=== PATIENT | male | born 1945 | race Caucasian/White ===

== ENCOUNTER → 2018-03-10 | Outpatient (CLI) | payer MEDICARE ==
[~2018-03-10] MED LIST: ACET250 PO; ALBU90OI; ALBU90OI INH; ALBU90OI6 INH; ALBUIS IH; ALLO100 PO; ATEN25; BUDE6HFA; CARV6.25 PO; CHLO500 PO; CLAR500; COLC.6 PO; CYCL10 PO; Crutch1 EACH MISC; FAMO20 PO; FURO40 PO; HYDACE5 PO; IBUP800 PO; LEVFLO500 PO; LISI5 PO; METF500 PO; NAPR500 PO; OMEP10ER; OXYACE5T PO; POTCHL20ER PO; RXCYCL10 PO; RXOXYACE PO; SIMV10 PO; SPIHYD; SPIR25 PO; TORSE20 PO; WARF5; WARF5 PO
== END | disposition home or self-care (01) ==
LOC: LAB 13:04 → LAB SHORT 13:04
DX: L08.9 Local infection of the skin and subcutaneous tissue, unspecified (principal)
CPT/HCPCS: 87070; 87147; 87205

== ENCOUNTER 2018-11-12 12:07 | Observation (INO) | payer MEDICARE, OTHER ==
[~2018-11-12] VITALS: Ht 188 cm; Wt 168.2 kg
[~2018-11-12 12:07] MED LIST changes: -ALBU90OI6 INH; -POTCHL20ER PO
[2018-11-12 12:54] LABS: BASOPHILS ABSOLUTE AUTO 0.08 K/mm3 (0.00-0.23); BASOPHILS PERCENT AUTO 1 % (0-2); EOSINOPHILS ABSOLUTE AUTO 0.59 K/mm3 (0.00-0.68); EOSINOPHILS PERCENT AUTO 6 % (0-6); Hematocrit 40.5 % (37.0-53.0); Hemoglobin 12.7 g/dL (13.5-17.5); IMMATURE GRAN ABSOLUTE AUTO 0.03 K/mm3 (0.00-0.10); IMMATURE GRAN PERCENT AUTO 0 % (0-1); LYMPHOCYTES ABSOLUTE AUTO 3.13 K/mm3 (0.84-5.20); LYMPHOCYTES PERCENT AUTO 31 % (21-46); MONOCYTES ABSOLUTE AUTO 0.46 K/mm3 (0.16-1.47); MONOCYTES PERCENT AUTO 5 % (4-13); Mean Corpuscular HGB 29.9 pg (26.0-34.0); Mean Corpuscular HGB Conc 31.4 g/dL (31.5-36.5); Mean Corpuscular Volume 95 fL (80-100); Mean Platelet Volume 10.3 fL (9.1-12.4); NEUTROPHILS ABSOLUTE AUTO 5.77 K/mm3 (1.96-9.15); NEUTROPHILS PERCENT AUTO 57 % (41-73); Platelet Count 197 K/mm3 (150-400); RDW Coefficient Variation 14.3 % (11.7-14.2); RDW Standard Deviation 49.5 fL (35.1-46.3); Red Blood Cell Count 4.25 M/mm3 (4.30-5.90); White Blood Cell Count 10.06 K/mm3 (4.00-11.30)
[2018-11-12 13:09] LABS: Alanine Aminotransfer (ALT/SGP 28 U/L (12-78); Albumin, Blood 3.6 g/dL (3.4-5.0); Albumin/Globulin Ratio 0.9 (0.8-1.8); Alk Phos 80 U/L (50-136); Anion Gap 6 mmol/L (6-16); Aspartate Aminotrans (AST/SGOT 29 U/L (12-37); Bilirubin, Total 1.3 mg/dL (0.1-1.0); Blood Urea Nitrogen 26 mg/dL (8-24); Bun/Creatinine Ratio 21.7 (12.0-20.0); CO2, Blood 29 mmol/L (21-32); Calcium, Blood 9.9 mg/dL (8.5-10.1); Chloride, Blood 103 mmol/L (98-108); Globulin, Blood 4.2 g/dL (2.2-4.0); Glomerular Filtration Rate >60 (60-); Glucose, Blood 171 mg/dL (70-99); Potassium, Blood 4.5 mmol/L (3.5-5.5); Sodium, Blood 138 mmol/L (136-145); Total Protein, Blood 7.8 g/dL (6.4-8.2); Troponin I <0.015 ng/mL (0.000-0.040)
[2018-11-12] MEDS ORDERED: **INCOMPLETE MED REC (15:15)
[2018-11-12 15:33] LABS: International Normalized Ratio 2.28; Prothrombin Time Results 22.4 Sec (9.7-11.5)
[2018-11-12] MEDS ORDERED: ALLO100 PO (15:56)
[2018-11-12] MEDS ORDERED: CARV25 PO (15:57)
[2018-11-12] MEDS ORDERED: INSULANPEN SC (16:00)
[2018-11-12] MEDS ORDERED: NITR.4SL SL (16:01)
[2018-11-12] MEDS ORDERED: OXYC10TA19 PO (16:02)
[2018-11-12] MEDS ORDERED: SIMV10 PO (16:03)
[2018-11-12] MEDS ORDERED: POTCHL20ER PO (16:03)
[2018-11-12] MEDS ORDERED: SPIR25 PO (16:04)
[2018-11-12] MEDS ORDERED: TORSE20 PO (16:04)
[2018-11-12] MEDS ORDERED: WARF5 PO (16:06)
[2018-11-12] MEDS ORDERED: WARF2.5 PO (16:07)
[2018-11-12] MEDS ORDERED: METF500C PO (16:09)
[2018-11-12] MEDS ORDERED: LOSA25 PO (16:10)
[2018-11-12] MEDS ORDERED: ALBU90OI6 INH (16:14)
[2018-11-12] MEDS ORDERED: DICLOFENAC SOD100 G1 TOP (16:15)
[2018-11-13 05:34] LABS: International Normalized Ratio 2.37; Prothrombin Time Results 23.2 Sec (9.7-11.5)
--- NOTE | 2018-11-13 06:20 | NUR ---
SHIFT SUMMARY RECEIVED REPORT FROM ED RN. ARRIVED TO MEDICAL FLOOR VIA WHEELCHAIR. TRANSFERED WITHOUT ASSISTANCE. ORIENTED TO ROOM AND CALL SYSTEM. A/O X4, ABLE TO MAKE NEEDS KNOWN. COOPERATIVE WITH CARE. ANSWERS QUESTIONS APPROPRIATELY. C/O PAIN ALL OVER; MEDICATED PER EMAR. NO C/O CHEST PAIN. INDEPENDENT TO BATHROOM. STATED HAS A PACEMAKER. TELE PACED 100% @ 69 PER PCU FINANCE AND ADMINISTRATION MANAGER. BLOOD PRESSURES HAVE BEEN HYPOTENSIVE SINCE ARRIVAL; TRAY SERVER AWARE WELL ON-CALL PHYSICIAN. STATES WEARS CPAP @ HOME. RESPIRATORY INVOLVED IN CARE.CONTINUED TO MONITOR THROUGHOUT THE NIGHT. BED IN LOWEST POSITION. CALL LIGHT AND BELONGINGS WITHIN REACH. REPORT GIVEN TO DAY SHIFT RN.
--- NOTE | 2018-11-13 18:44 | NUR ---
SHIFT SUMMARY PATIENT HAD STRESS TEST TODAY. NO COMPLAINTS OF CHEST PAIN. IN ROOM WITH . CURRENTLY UP IN SHOWER. NO ACUTE ISSUES NOTED.
--- NOTE | 2018-11-14 00:48 | NUR ---
0010 AWOKE DISORIENTED AND TANGLED IN ALL OF THE WIRES. REPLACED IV DRESSING.
[2018-11-14 05:45] LABS: International Normalized Ratio 2.75; Prothrombin Time Results 26.6 Sec (9.7-11.5)
--- NOTE | 2018-11-14 06:03 | NUR ---
SHIFT SUMMARY A/O X4, ABLE TO MAKE NEEDS KNOWN. COOPERATIVE WITH CARE. CALLS AND ANSWERS QUESTIONS APPROPRIATELY. GIVEN SCHEDULED PAIN MEDICATION TO MANAGE CHRONIC PAIN. NO FURTHER COMPLAINTS. NO C/O CHEST PAIN. INDEPENDENT IN ROOM. CPAP @ HS WITH CONT. BIOX. LUNGS CTA; RESPIRATIONS EVEN AND EQUAL RISE/FALL. NO ACUTE CHANGES OVERNIGHT. VSS/AFEBRILE. WILL HAVE SECOND HALF OF STRESS TEST TODAY. BED IN LOWEST POSITION. CALL LIGHT AND BELONGINGS WITHIN REACH. WCTM. REPORT TO ONCOMING RN.
--- NOTE | 2018-11-14 18:39 | NUR ---
SHIFT SUMMARY: NO ACUTE CHANGES TO REPORT THIS SHIFT. PT A&O; CALM AND COOPERATIVE WITH CARE. MEDICATED FOR CHRONIC BACK/HIP PAIN PER EMAR. TELE IN PLACE; 100% PACED AT 69 PER PROSTHODONTIST/EDUCATOR DURING MORNING ASSESSMENT; HX CHF & A-FIB. CONTINUOUS BIOX. STRESS TEST SCHEDULED FOR SAT 02/16 IN AM; PT NPO AFTER MIDNIGHT. WCTM.
[2018-11-15 06:03] LABS: International Normalized Ratio 2.64; Prothrombin Time Results 25.6 Sec (9.7-11.5)
--- NOTE | 2018-11-15 06:39 | NUR ---
SHIFT SUMMARY PT IS A 73 Y/O MALE, ADMITTED FOR CHEST PAIN. HE DENIED ANY PAIN, NAUSEA OR ACUTE SOB DURING THE NIGHT. PT'S BP WAS LOW DURING EVENING VITALS AT 93/58, BUT OTHERWISE VITALS REMAINED STABLE. PT HAS BEEN NPO SINCE MIDNIGHT IN PREPARATION FOR A STRESS TEST TODAY. NO OTHER ACUTE CHANGES IN PT CONDITION NOTED. WILL CONTINUE TO MONITOR AND TREAT.
--- NOTE | 2018-11-15 17:15 | NUR ---
PT UNDERWENT THE SECOND PORTION OF HIS STRESS TEST TODAY. HE IS NOW ON AN ADA DIET. HE HAS COMPLAINED OF BACK PAIN TODAY AND TREATED PER EMAR. IS AT THE BEDSIDE NOW. NO COMPLAINTS OF CHEST PAIN TODAY. NEW IV PLACED IN LEFT FOREARM. NO ACUTE CHANGES, WILL CONTINUE TO MONITOR.
[2018-11-16 04:48] LABS: Mean Platelet Volume 10.2 fL (9.1-12.4); Platelet Count 173 K/mm3 (150-400)
[2018-11-16 05:04] LABS: International Normalized Ratio 2.36; Prothrombin Time Results 23.1 Sec (9.7-11.5)
--- NOTE | 2018-11-16 06:34 | NUR ---
SHIFT SUMMARY PT IS A 73 Y/O MALE, ADMITTED FOR CHEST PAIN. THE PT DENIED ANY PAIN AT REST, BUT DID REPORT SOME CHEST PAIN WITH EXERTION. HE DENIED ANY NAUSEA OR SOB. PT'S BP WAS LOW DURING THE NIGHT, AT 91-96 SYSTOLICALLY. ALL OTHER VITALS REMAINED STABLE. NO OTHER ACUTE CHANGES IN PT CONDITION NOTED. WILL CONTINUE TO MONITOR AND TREAT.
--- NOTE | 2018-11-16 11:56 | NUR ---
DR TARANGO NOTIFIED OF CARDIAC MEDS BEING HELD THIS AM DUE TO HYPOTENSTION. DR TARANGO REPORTS OK TO HOLD. WILL LOOK INTO MEDICATIONS AND PLACE HOLDING PARAMETERS.
--- NOTE | 2018-11-16 17:15 | NUR ---
PT IS ALERT AND ORIENTED AND COOPERATIVE WITH CARE. HE IS INDEPENDENT IN HIS ROOM, SPENDS A LOT OF TIME ON HIS PERSONAL LAPTOP. PT HAS A PERMANENT PACEMAKER. 22 GAUGE IV IN HIS LEFT FOREARM. THE PLAN IS TO KEEP TRACT OF THE PT'S INR AND START A HEPARIN DRIP WHEN THE INR IS LESS THAN 2 AND POSSIBLE CARDIAC CATHETERIZATION WHEN INR IS LESS THAN 1.7. NO ACUTE CHANGES TODAY. WILL CONTINUE TO MONITOR.
[2018-11-17 05:06] LABS: International Normalized Ratio 1.79
--- NOTE | 2018-11-17 06:30 | NUR ---
SHIFT SUMMARY PT IS A 73 Y/O MALE, ADMITTED FOR CHEST PAIN. HE IS A&O X 4, AND INDEPENDENT IN THE ROOM. HE DENIED ANY COMPLAINTS OF PAIN, NAUSEA OR SOB AND SLEPT WELL THROUGH THE NIGHT. PT'S BP WAS LOW DURING THE NIGHT, AT 98 SYSTOLICALLY. ALL OTHER VITALS STABLE. NO OTHER ACUTE CHANGES IN PT CONDITION NOTED. WILL CONTINUE TO MONITOR AND TREAT PER EMAR.
--- NOTE | 2018-11-17 11:25 | NUR ---
Permission for care Patient gave student services dean verbal permission to assist in providing care on 11/18/2018 from [id number]. Eliane Burger
--- NOTE | 2018-11-17 13:48 | NUR ---
PT TO TRANSFER TO PCU 4. PT HAS BEEN TAKEN TO WATER PROJECT ENGINEER. REPORT GIVEN TO PCU4 NURSE SHE WILL RECIEVE PT AFTER HE IS DONE IN WATER PROJECT ENGINEER. PT HAD A GOOD MORNING AOX4 AND COOPERATIVE OF ALL CARE. PT DENIED ANY CHEST PAIN TODAY AND WAS IN GOOD SPIRITS. NO DISTRESS NOTED AND INDEPENDENT IN ROOM.
--- NOTE | 2018-11-17 18:53 | NUR ---
SHIFT SUMMARY 1515 PT RECEIVED FROM MEDICAL FLOOR VIA [facility]. ALERT AND ORIENTED X3. RIGHT WRIST SOFT, NO BLEED OR HEMATOMA, TR BAND CDI, ARMBOARD IN PLACE. RIGHT GROIN SOFT, NO BLEED OR HEMATOMA, OPSITE DRSG IN PLACE. PT MOVING AROUND IN BED, HAVING DIFFICULTY FOLLOWING THE BEDREST INSTRUCTIONS. GAUZE PRESSURE DRSG APPLIED TO RIGHT GROIN TO KEEP SITE SECURE. RIGHT PEDAL PULSE PALPABLE. VSS. C/O PAIN ALL OVER, MEDICATED WITH SCHEDULED PAIN MEDS. AT BEDSIDE. PT UNABLE TO VOID IN THE URINAL WHILE ON BEDREST, STRAIGHT CATHED X1 FOR A TOTAL FOR 725 ML OF YELLOW URINE. WILL CONTINUE TO MONITOR.
[2018-11-18 04:22] LABS: Hematocrit 36.9 % (37.0-53.0); Hemoglobin 11.6 g/dL (13.5-17.5); Mean Corpuscular HGB Conc 31.4 g/dL (31.5-36.5); Mean Corpuscular Volume 95 fL (80-100); Mean Platelet Volume 10.7 fL (9.1-12.4); Platelet Count 184 K/mm3 (150-400); RDW Coefficient Variation 14.2 % (11.7-14.2); RDW Standard Deviation 49.1 fL (35.1-46.3); Red Blood Cell Count 3.87 M/mm3 (4.30-5.90)
[2018-11-18 04:39] LABS: Anion Gap 6 mmol/L (6-16); Blood Urea Nitrogen 22 mg/dL (8-24); Bun/Creatinine Ratio 22.3 (12.0-20.0); CO2, Blood 26 mmol/L (21-32); Calcium, Blood 9.7 mg/dL (8.5-10.1); Chloride, Blood 104 mmol/L (98-108); Creatinine, Blood 0.99 mg/dL (0.60-1.20); Glomerular Filtration Rate >60 (60-); Glucose, Blood 116 mg/dL (70-99); Potassium, Blood 4.9 mmol/L (3.5-5.5); Sodium, Blood 136 mmol/L (136-145)
--- NOTE | 2018-11-18 05:22 | NUR ---
SHIFT SUMMARY. SEE HC RECOVERY OF SITE. RT GROIN AND RT WRIST WNL . VERY SLOW IN STAFF PROGRESSING W/ TR BAND REMOVAL AND REMOVING RT GROIN PRESSURE DSG DUE TO IRRITABLE FLAILING IN BED AND DISREGUARD FOR INSTRUCTION AND YELLS OUT W/ PROTEST.DENIES PAIN EARLY IN SHIFT THEN LATER GENERAL DISCOMFORT WHILE IN BED AND CHRONIC BACK PAIN. PO MED LATER WHEN NAUSEA SUBSIDES. AT START OF SHIFT, RETCHING W/ A LOT OF COUGHING AND MUCUS EXPECTORATING. THEN WITHIN 1.5 HR POST ZOFRAN 300 ML UNDIGESTED STOMACH CONTENTS EMESIS.FELT MUCH RELIEV POST EMESIS , AND NO FURTHER C/O GI DISTRESS AGAIN. NO FURTHER NEED OF ZOFRAN. ENC TO TAKE FLUIDS SLOWLY. AND SIPS TAKEN ALL NOC. UP TO BSC W/ FAIRLY STEADY GAIT AND FOLLOWS INSTRUCTIONS NOT TO USE RT HAND TO PUSH OFF. VERY PLEASANT AND COOPERATIVE LAST HALF OF SHIFT . GOOD RELIEF FROM PAIN MED.FOR GENERAL DISCOMFORT. VS WNL . 100% PACED. LOWER EXT ENEMA 2-3+
--- NOTE | 2018-11-18 06:41 | NUR ---
BED ALARM NOT SET AND PT UP TO BSC W/ O CALLING STAFF. NO ADVERSE PROBLEMS W/ BOTH CATH SITES. DENIES A LITTLE DIZZINESS WHEN FIRST UP . NO GI DISTRESS AND ATE SOME FRUIT .
[2018-11-18] MEDS ORDERED: CARV3.125 PO (13:08)
[2018-11-18] MEDS ORDERED: LOSA25 PO (13:09)
[2018-11-18] MEDS ORDERED: Isosorbide Mono60 MG PO (13:11)
[2018-11-18] MEDS ORDERED: ATOR80 PO (13:14)
[2018-11-18] MEDS ORDERED: ASPI81CH PO (13:15)
[2018-11-21] MEDS ORDERED: TRIA15CR3 TOP (15:03)
== END 2018-11-18 13:42 | disposition home or self-care (01) ==
LOC: ER 12:07 → MEDS 12:08 → PCU 12:09 → MEDS 12:09 → PCU 12:10 → MEDS 19:27 → PCU 11-17 13:52 → MEDS 11-17 13:52 → PCU 11-17 14:36
PROVIDERS: Emergency Medicine; Physician Assistant; ADMIT Internal Medicine
DX: R07.9 Chest pain, unspecified (principal); I48.91 Unspecified atrial fibrillation; E66.01 Morbid (severe) obesity due to excess calories; E11.9 Type 2 diabetes mellitus without complications; Z79.899 Other long term (current) drug therapy; Z95.0 Presence of cardiac pacemaker; Z79.01 Long term (current) use of anticoagulants; R79.9 Abnormal finding of blood chemistry, unspecified; Z79.4 Long term (current) use of insulin
CPT/HCPCS: 36415; 51701; 71046; 71275; 78452; 80048; 80053; 82947; 83880; 84484; 85025; 85027; 85049; 85610; 85730; 93005; 93010; 93017; 93454; 94660; 94762; 99152; 99153; 99285-25; A9500; C1769; C1894; G0378; J0706; J1644; J2250; J2405; J2785; J3010; J7030; Q9967

== ENCOUNTER 2020-01-21 00:16 | Day surgery (SDC) | payer MEDICARE ==
[~2020-01-21 00:16] MED LIST changes: +**INCOMPLETE MED REC; +ALBU90OI6 INH; +ASPI81CH PO; +ATOR80 PO; +CARV25 PO; +CARV3.125 PO; +DICLOFENAC SOD100 G1 TOP; +INSULANPEN SC; +Isosorbide Mono60 MG PO; +LOSA25 PO; +METF500C PO; +NITR.4SL SL; +OXYC10TA19 PO; +POTCHL20ER PO; +TRIA15CR3 TOP; +WARF2.5 PO
== END 2020-01-21 22:42 | disposition home or self-care (01) ==
LOC: WOUND 00:16
DX: B35.4 Tinea corporis (principal); E11.622 Type 2 diabetes mellitus with other skin ulcer; L97.911 Non-pressure chronic ulcer of unspecified part of right lower leg limited to breakdown of skin; E66.01 Morbid (severe) obesity due to excess calories; I10 Essential (primary) hypertension; J45.909 Unspecified asthma, uncomplicated; Z88.8 Allergy status to other drugs, medicaments and biological substances; Z68.35 Body mass index [BMI] 35.0-35.9, adult; Z79.01 Long term (current) use of anticoagulants; Z79.4 Long term (current) use of insulin
CPT/HCPCS: G0463

== ENCOUNTER 2020-01-26 16:24 | Emergency (ER) | payer MEDICARE ==
[~2020-01-26] VITALS: Ht 190.5 cm; Wt 137.9 kg
[2020-01-26 19:05] LABS: Prothrombin Time Results >90.0 Sec (9.7-11.5)
[2020-01-26 19:07] LABS: International Normalized Ratio No Calc
[2020-01-26 19:30] LABS: Calcium, Ionized (POC) 1.43 mmol/L (1.10-1.46); Chloride (POC) 108 mmol/L (98-108); Creatinine (POC) 2.6 mg/dL (0.8-1.3); Glucose (ISTAT POC) 94 mg/dL (70-99); Hemoglobin (POC) 11.2 g/dL (13.5-17.5); Potassium (POC) 5.7 mmol/L (3.5-5.5); Sodium (POC) 136 mmol/L (135-148); Total CO2 (POC) 24 mmol/L (21-32)
== END 2020-01-26 20:15 | disposition home or self-care (01) ==
LOC: ER 16:24
PROVIDERS: Emergency Medicine; Physician Assistant
DX: D68.9 Coagulation defect, unspecified (principal); Z79.01 Long term (current) use of anticoagulants; Z79.4 Long term (current) use of insulin; Z79.82 Long term (current) use of aspirin; Z79.899 Other long term (current) drug therapy
CPT/HCPCS: 36415; 80047; 85014; 85610; 96374; 99283-25; J3430

== ENCOUNTER 2020-02-05 20:49 | Inpatient (IN) | payer MEDICARE ==
[~2020-02-05] VITALS: Ht 182.9 cm; Wt 122.7 kg
[~2020-02-05 20:49] MED LIST changes: -ASPI81CH PO; -ATOR80 PO; -CARV3.125 PO; -INSULANPEN SC; -OXYC10TA19 PO; -WARF2.5 PO
[2020-02-05 21:04] LABS: BASOPHILS ABSOLUTE AUTO 0.07 K/mm3 (0.00-0.23); BASOPHILS PERCENT AUTO 1 % (0-2); EOSINOPHILS ABSOLUTE AUTO 0.97 K/mm3 (0.00-0.68); EOSINOPHILS PERCENT AUTO 9 % (0-6); Hematocrit 36.1 % (37.0-53.0); Hemoglobin 11.1 g/dL (13.5-17.5); IMMATURE GRAN ABSOLUTE AUTO 0.07 K/mm3 (0.00-0.10); IMMATURE GRAN PERCENT AUTO 1 % (0-1); LYMPHOCYTES ABSOLUTE AUTO 4.14 K/mm3 (0.84-5.20); LYMPHOCYTES PERCENT AUTO 38 % (21-46); MONOCYTES PERCENT AUTO 7 % (4-13); Mean Corpuscular HGB 30.1 pg (26.0-34.0); Mean Corpuscular HGB Conc 30.7 g/dL (31.5-36.5); Mean Corpuscular Volume 98 fL (80-100); Mean Platelet Volume 11.8 fL (9.1-12.4); NEUTROPHILS ABSOLUTE AUTO 4.74 K/mm3 (1.96-9.15); NEUTROPHILS PERCENT AUTO 44 % (41-73); Platelet Count 158 K/mm3 (150-400); RDW Coefficient Variation 16.8 % (11.7-14.2); RDW Standard Deviation 59.7 fL (35.1-46.3); Red Blood Cell Count 3.69 M/mm3 (4.30-5.90); White Blood Cell Count 10.79 K/mm3 (4.00-11.30)
[2020-02-05 21:20] LABS: Calcium, Ionized (POC) 1.37 mmol/L (1.10-1.46); Chloride (POC) 112 mmol/L (98-108); Creatinine (POC) 2.5 mg/dL (0.8-1.3); Glucose (ISTAT POC) 85 mg/dL (70-99); Hemoglobin (POC) 11.2 g/dL (13.5-17.5); Sodium (POC) 137 mmol/L (135-148); Total CO2 (POC) 19 mmol/L (21-32)
[2020-02-05 22:01] LABS: International Normalized Ratio 2.67
[2020-02-05 22:05] LABS: Alanine Aminotransfer (ALT/SGP 31 U/L (12-78); Albumin, Blood 2.9 g/dL (3.4-5.0); Albumin/Globulin Ratio 0.9 (0.8-1.8); Alk Phos 139 U/L (50-136); Anion Gap 8 mmol/L (6-16); Aspartate Aminotrans (AST/SGOT 93 U/L (12-37); Bilirubin, Total 1.4 mg/dL (0.1-1.0); Blood Urea Nitrogen 95 mg/dL (8-24); Bun/Creatinine Ratio 43.4 (12.0-20.0); CO2, Blood 19 mmol/L (21-32); Calcium, Blood 9.7 mg/dL (8.5-10.1); Chloride, Blood 111 mmol/L (98-108); Creatinine, Blood 2.19 mg/dL (0.60-1.20); Ethanol (Alcohol), Blood, Med <3 mg/dL; Globulin, Blood 3.4 g/dL (2.2-4.0); Glomerular Filtration Rate 31 (60-); Glucose, Blood 76 mg/dL (70-99); Potassium, Blood 5.8 mmol/L (3.5-5.5); Sodium, Blood 138 mmol/L (136-145); Total Protein, Blood 6.3 g/dL (6.4-8.2); Troponin I <0.015 ng/mL (0.000-0.040)
[2020-02-05 22:52] LABS: U Amphetamine Screen Not Detected; U Barbituate Screen Not Detected; U Benzodiazapine Screen Not Detected; U Buprenorphine Screen Not Detected; U Cannabinoids Screen Not Detected; U Cocaine Screen Not Detected; U Methadone Screen Not Detected; U Methamphetamine Screen Not Detected; U Opiates Screen Not Detected; U Oxycodone Screen DETECTED; U Phencyclidine Screen Not Detected; U Propoxyphene Screen Not Detected
[2020-02-05 22:53] LABS: Source, Urine Catheter
[2020-02-05 22:59] LABS: Bilirubin, Urine Neg (Neg); Blood, Urine Neg (Neg); Glucose Qualitative, Urine Neg (Neg); Ketones, Urine Neg (Neg); Leukocyte Esterase, Urine Neg (Neg); Nitrite, Urine Neg (Neg); Protein, Urine Neg (Neg); Specific Gravity, Urine 1.015 (1.003-1.022); Urobilinogen, Urine NORM (Normal)
[2020-02-05 23:10] LABS: Appearance, Urine Clear (Clear); Color, Urine Yellow (P-Yellow)
[2020-02-06] MEDS ORDERED: COLCRYS0.6 M1 PO (03:08)
[2020-02-06] MEDS ORDERED: CLOTRIMAZOLE AF2824 TOP (03:10)
[2020-02-06] MEDS ORDERED: ALDACTONE25 MG PO (03:12)
[2020-02-06] MEDS ORDERED: LISI5 PO (03:13)
[2020-02-06 05:21] LABS: BASOPHILS ABSOLUTE AUTO 0.05 K/mm3 (0.00-0.23); BASOPHILS PERCENT AUTO 1 % (0-2); EOSINOPHILS ABSOLUTE AUTO 0.84 K/mm3 (0.00-0.68); EOSINOPHILS PERCENT AUTO 9 % (0-6); Hematocrit 34.3 % (37.0-53.0); Hemoglobin 10.6 g/dL (13.5-17.5); IMMATURE GRAN ABSOLUTE AUTO 0.05 K/mm3 (0.00-0.10); IMMATURE GRAN PERCENT AUTO 1 % (0-1); LYMPHOCYTES ABSOLUTE AUTO 3.55 K/mm3 (0.84-5.20); LYMPHOCYTES PERCENT AUTO 37 % (21-46); MONOCYTES ABSOLUTE AUTO 0.79 K/mm3 (0.16-1.47); MONOCYTES PERCENT AUTO 8 % (4-13); Mean Corpuscular HGB 30.5 pg (26.0-34.0); Mean Corpuscular HGB Conc 30.9 g/dL (31.5-36.5); Mean Corpuscular Volume 99 fL (80-100); NEUTROPHILS ABSOLUTE AUTO 4.32 K/mm3 (1.96-9.15); NEUTROPHILS PERCENT AUTO 45 % (41-73); Platelet Count 127 K/mm3 (150-400); RDW Coefficient Variation 16.9 % (11.7-14.2); RDW Standard Deviation 61.1 fL (35.1-46.3); Red Blood Cell Count 3.47 M/mm3 (4.30-5.90)
[2020-02-06 05:50] LABS: Albumin, Blood 3.1 g/dL (3.4-5.0); Albumin/Globulin Ratio 0.8 (0.8-1.8); Bilirubin, Total 1.5 mg/dL (0.1-1.0); Bun/Creatinine Ratio 47.1 (12.0-20.0); Calcium, Blood 10.7 mg/dL (8.5-10.1); Creatinine, Blood 2.06 mg/dL (0.60-1.20); Globulin, Blood 3.8 g/dL (2.2-4.0); Potassium, Blood 5.6 mmol/L (3.5-5.5); Total Protein, Blood 6.9 g/dL (6.4-8.2); Uric Acid, Blood 3.1 mg/dL (3.5-7.2)
[2020-02-06 05:56] LABS: Thyroid Stimulating Hormone 1.58 uIU/mL (0.360-4.800)
[2020-02-06 11:47] LABS: Source, Urine Catheter
[2020-02-06 11:56] LABS: Bilirubin, Urine Neg (Neg); Blood, Urine 2+ (Neg); Glucose Qualitative, Urine Neg (Neg); Ketones, Urine Neg (Neg); Leukocyte Esterase, Urine Neg (Neg); Nitrite, Urine Neg (Neg); Protein, Urine Neg (Neg); Specific Gravity, Urine 1.015 (1.003-1.022); Urobilinogen, Urine NORM (Normal)
[2020-02-06 12:23] LABS: Appearance, Urine Clear (Clear); Color, Urine Yellow (P-Yellow); Red Blood Cells, Urine 0-2 /hpf (0-2); Squamous Epithelial Cells Rare /hpf (Few); White Blood Cells, Urine 0-2 /hpf (0-5)
[2020-02-06 12:24] LABS: Bacteria Rare /hpf
--- NOTE | 2020-02-06 17:02 | NUR ---
PATIENT A/O TO SELF AND FAMILY ONLY. WILL ANSWER YES/NO QUESTIONS. UNABLE TO STAND PATIENT FOR ORTHOSTATIC VITALS DUE TO MENTATION AND INABILITY TO FOLLOW COMMANDS. PATIENT MOANING AND HOLLERING OUT IN PAIN THIS MORNING. RESTARTED HOME DOSE OF OXYCODONE AND PATIENT RESTED WELL. PATIENT WAS UNABLE TO VOID THIS AM, BLADDER SCAN SHOWED 740ML'S IN HIS BLADDER. HIDALGO PLACED TO GRAVITY. BILATERAL SOFT WRIST RESTRAINTS TO PROTECT LINES. 20G IV TO L UPPER ARM WNL. NS @ 125/HR INFUSING AND 2 BAGS. DISCOLORED/DARKENED SKIN TO BLE, OTHERWISE SKIN INTACT. VSS, ON RA. SPOKE WITH TODAY AND UPDATED HER ON PLAN OF CARE AND USE OF RESTRAINTS. ACHS BLOOD SUGARS, NO COVERAGE NEED THIS SHIFT. PATIENT TOLERATING ADA DIET, NEEDS ASSISTANCE WITH MEALS.
[2020-02-07 05:15] LABS: International Normalized Ratio 3.84; Prothrombin Time Results 38.1 Sec (9.7-11.5)
[2020-02-07 06:01] LABS: Albumin/Globulin Ratio 0.8 (0.8-1.8); Bilirubin, Total 1.4 mg/dL (0.1-1.0); Bun/Creatinine Ratio 53.8 (12.0-20.0); Calcium, Blood 10.5 mg/dL (8.5-10.1); Creatinine, Blood 1.3 mg/dL (0.60-1.20); Globulin, Blood 3.8 g/dL (2.2-4.0); Phosphorus, Blood 3.2 mg/dL (2.5-4.9); Potassium, Blood 5.5 mmol/L (3.5-5.5); Total Protein, Blood 6.8 g/dL (6.4-8.2)
[2020-02-07 06:07] LABS: Bilirubin, Direct 0.4 mg/dL (0.0-0.3)
--- NOTE | 2020-02-07 17:07 | NUR ---
PATIENT DOING MUCH BETTER THIS AFTERNOON. A/OX4, UP WITH FWW AND 1 ASSIST TO CHAIR/BATHROOM. VSS, ON RA. ABRASION TO R GROIN AREA, BAND AID IN PLACE. D5NS RUNNING AT 100ML/HR TO 20G IV TO L UPPER ARM. HIDALGO TO GRAVITY WITH GOOD U/O. RESTRAINTS DC'D THIS AM AND PATIENT HAS DONE WELL. ACHS BLOOD SUGARS, NO COVERAGE REQUIRED THIS SHIFT. TOLERATING ADA DIET. OXYCODONE USED TO TREAT CHRONIC BACK PAIN WITH STATED RELIEF. CALM AND COOPERATIVE WITH CARE, CALLS APPROPRIATELY FOR ASSISTANCE.
[2020-02-08 05:33] LABS: Alanine Aminotransfer (ALT/SGP 31 U/L (12-78); Albumin, Blood 3.1 g/dL (3.4-5.0); Albumin/Globulin Ratio 0.8 (0.8-1.8); Alk Phos 146 U/L (50-136); Anion Gap 9 mmol/L (6-16); Aspartate Aminotrans (AST/SGOT 110 U/L (12-37); Bilirubin, Direct 0.3 mg/dL (0.0-0.3); Bilirubin, Indirect 1.2 mg/dL (0.1-0.7); Bilirubin, Total 1.5 mg/dL (0.1-1.0); Blood Urea Nitrogen 56 mg/dL (8-24); Bun/Creatinine Ratio 47.5 (12.0-20.0); CO2, Blood 18 mmol/L (21-32); Calcium, Blood 10.7 mg/dL (8.5-10.1); Chloride, Blood 111 mmol/L (98-108); Creatinine, Blood 1.18 mg/dL (0.60-1.20); Globulin, Blood 3.7 g/dL (2.2-4.0); Glomerular Filtration Rate >60 (60-); Glucose, Blood 102 mg/dL (70-99); Phosphorus, Blood 2.4 mg/dL (2.5-4.9); Potassium, Blood 5.4 mmol/L (3.5-5.5); Sodium, Blood 138 mmol/L (136-145); Total Protein, Blood 6.8 g/dL (6.4-8.2)
[2020-02-08 06:08] LABS: HBSAG SCREEN Negative (Negative); HEP A AB, IGM Negative (Negative); HEP B CORE AB, IGM Negative (Negative); HEP C VIRUS AB <0.1 (0.0-0.9)
--- NOTE | 2020-02-08 07:44 | NUR ---
PALEOBOTANIST SUMMARY PATIENT STATED THAT HE USES CPAP WITH AN 02 BLEED IN NIGHTLY AT HOME. Patient awake most of night sitting at side of bed with back pain and abdominal cramping. It was explained that the abdominal cramping was likely due to the extensive bowel treatment given to him in the afternoon in attempt to initiate a resolution to his current (and chronic) constipation. Patient patient extremely talkative about his cardiac history. He states he was supposed to get new valve as well as a redo valve replacement today. (02/07). Patient was also quite fixated on his pain medication regimen stating that his Rubbish Collector told him that if he changed to anything other than his current Oxycodone regimen, it would create damage to his heart. Voiding chelsea clear urine via slade catheter. Only two small stools overnight.
[2020-02-08 09:43] LABS: International Normalized Ratio 2.96; Prothrombin Time Results 29.8 Sec (9.7-11.5)
--- NOTE | 2020-02-08 14:15 | NUR ---
PT C/O CHEST PAIN- PT WORKING WITH OCCUPATIONAL; THERAPY AND C/O CHEST PAIN. GRAB DRIVER NOTIFIED, VITALS TAKEN. NO CHANGE ON TELE, SLIGHT RATE INCREASE, NO CHANGE IN RYTHM. WHEN VITALS WERE BEING TAKEN THE PT WAS TALKING CONSTANTLY.
--- NOTE | 2020-02-08 16:00 | NUR ---
SPOKE TO DR MUHAMMAD- PT HAS NOT HAD A BM TODAY, HIDALGO CATH WAS DC'D AND PT HAS VOIDED SINCE IT WAS DC'D, PT BEING MEDICATED FOR NAUSEA CURRENTLY. BG HAS MAINTAINED HIGH 90'S LOW 100'S. AWARE OF PT CHEST PAIN WHEN WORKING WITH OT AND THE VITALS FOR THAT TIME WERE REVIEWED. PLAN IS FOR THE PT TO DISCHARGE HOME WITH HOME HEALTH THIS EVENING.
--- NOTE | 2020-02-08 16:31 | NUR ---
Initial spiritual care note: Mr. Booth told me immediately that he has "lost 145lbs in the last year." He seemed quite fixated on this. He does not know why he lost the weight. "it just fell off." He appears a bit confused and complained a lot about being hospitalized. He had trouble shifting topics. He did allow prayer. I will remain available.
[2020-02-08] MEDS ORDERED: LIDOCARE1 EACH TOP (17:53)
[2020-02-08] MEDS ORDERED: MIRALAX17 GM PO (17:53)
--- NOTE | 2020-02-08 18:22 | NUR ---
CALLED AND SPOKE TO DR MUHAMMAD FOR CLARIFICATION. PT HAS A NEW ORDER FOR HUMALOG QUICK PEN. PHARMACY CALLED FOR CLARIFICATION 30 DAY SUPPLY FILL QUANTITY AND AN ORDER FOR INSULIN PEN NEEDLES WAS REQUESTED, VERBAL RODER RECIEVED AND PASSED TO [facility].
--- NOTE | 2020-02-08 19:58 | NUR ---
DISCHARGE NOTE- PT SPOUSE CAME TO GET HIM. DISCUSSED IN DEPTH PT DISCHARGE INSTRUCTIONS WELL HIS MEDICATIONS. MEDS FAXED TO [facility]. PT IV AND TELE WERE DC'D PRIOR TO DISCHARGE. SPOUSE HAD NO FURTHER QUESTIONS AFTER DISCHARGE TEACHING. PT WAS ESCORTED OUT VIA WC BY THE SENIOR PRODUCER.
== END 2020-02-08 19:47 | disposition home health service (06) | DRG 314 ==
LOC: ER 20:49 → MEDS 02-06 01:34
PROVIDERS: Emergency Medicine; Internal Medicine; Pharmacist Critical Care; ADMIT Internal Medicine
DX: I95.9 Hypotension, unspecified (principal); G92 Toxic encephalopathy; I48.20 Chronic atrial fibrillation, unspecified; N17.9 Acute kidney failure, unspecified; Z68.41 Body mass index [BMI] 40.0-44.9, adult; I50.22 Chronic systolic (congestive) heart failure; E87.0 Hyperosmolality and hypernatremia; F11.20 Opioid dependence, uncomplicated; E86.0 Dehydration; E11.40 Type 2 diabetes mellitus with diabetic neuropathy, unspecified; Z95.0 Presence of cardiac pacemaker; Z79.4 Long term (current) use of insulin; Z79.82 Long term (current) use of aspirin; E66.01 Morbid (severe) obesity due to excess calories; Z79.01 Long term (current) use of anticoagulants; E87.5 Hyperkalemia; N18.3 Chronic kidney disease, stage 3 (moderate); E11.22 Type 2 diabetes mellitus with diabetic chronic kidney disease; M10.9 Gout, unspecified; N13.9 Obstructive and reflux uropathy, unspecified; E78.5 Hyperlipidemia, unspecified; K74.69 Other cirrhosis of liver; K76.0 Fatty (change of) liver, not elsewhere classified; R33.9 Retention of urine, unspecified; N40.1 Benign prostatic hyperplasia with lower urinary tract symptoms; K59.00 Constipation, unspecified; T40.2X5A Adverse effect of other opioids, initial encounter; Y92.9 Unspecified place or not applicable
CPT/HCPCS: 36415; 51701; 70450; 74177; 80047; 80053; 80074; 81001; 81003; 82105; 82140; 82248; 82947; 84100; 84443; 84484; 84550; 85014; 85025; 85610; 86850; 86900; 86901; 93005; 93010; 96365; 96375; 97110; 97162; 97166; 97530; 99285-25; A9270-GY; C9113; G0480; J0610; J2310; J2405; J7030; J7070; Q9967

== ENCOUNTER → 2020-02-16 | Outpatient (CLI) | payer MEDICARE ==
[~2020-02-16] MED LIST changes: +ALDACTONE25 MG PO; +ATOR80 PO; +Aspir 8181 MG PO; +CLOTRIMAZOLE AF2824 TOP; +CLOTRIMAZOLE TOP; +COLCRYS0.6 M1 PO; +Humalog100 UNIT/1 SC; +INSULANPEN SC; +ISOSORBIDE MONO60 MG PO; +LIDOCARE1 EACH TOP; +MIRALAX17 GM PO; +Mupirocin22 GM TOP; +OMEP20ER PO; +OXYC10TA19 PO; +SPIRONOLACTONE25 MG PO; +TAMS.4ER PO
[2020-02-16 19:58] LABS: Bun/Creatinine Ratio 38.7 (12.0-20.0); Calcium, Blood 12.3 mg/dL (8.5-10.1); Creatinine, Blood 1.42 mg/dL (0.60-1.20); Potassium, Blood 5.3 mmol/L (3.5-5.5)
== END | disposition home or self-care (01) ==
LOC: LAB 18:43 → LAB SHORT 18:43
PROVIDERS: Family Medicine
DX: N18.3 Chronic kidney disease, stage 3 (moderate) (principal)
CPT/HCPCS: 80048

== ENCOUNTER 2020-02-23 08:38 | Inpatient (IN) | payer MEDICARE ==
[~2020-02-23] VITALS: Ht 182.9 cm; Wt 128.8 kg
[~2020-02-23 08:38] MED LIST changes: -ATOR80 PO; -Aspir 8181 MG PO; -CLOTRIMAZOLE TOP; -Humalog100 UNIT/1 SC; -INSULANPEN SC; -ISOSORBIDE MONO60 MG PO; -Mupirocin22 GM TOP; -OMEP20ER PO; -OXYC10TA19 PO; -SPIRONOLACTONE25 MG PO; -TAMS.4ER PO
[2020-02-23 09:33] LABS: BASOPHILS PERCENT AUTO 1 % (0-2); EOSINOPHILS ABSOLUTE AUTO 1.23 K/mm3 (0.00-0.68); EOSINOPHILS PERCENT AUTO 9 % (0-6); Hematocrit 34.9 % (37.0-53.0); Hemoglobin 10.6 g/dL (13.5-17.5); IMMATURE GRAN ABSOLUTE AUTO 0.08 K/mm3 (0.00-0.10); IMMATURE GRAN PERCENT AUTO 1 % (0-1); LYMPHOCYTES ABSOLUTE AUTO 3.26 K/mm3 (0.84-5.20); LYMPHOCYTES PERCENT AUTO 24 % (21-46); MONOCYTES ABSOLUTE AUTO 0.94 K/mm3 (0.16-1.47); MONOCYTES PERCENT AUTO 7 % (4-13); Mean Corpuscular HGB 30.7 pg (26.0-34.0); Mean Corpuscular HGB Conc 30.4 g/dL (31.5-36.5); Mean Corpuscular Volume 101 fL (80-100); Mean Platelet Volume 12.2 fL (9.1-12.4); NEUTROPHILS ABSOLUTE AUTO 7.74 K/mm3 (1.96-9.15); NEUTROPHILS PERCENT AUTO 58 % (41-73); Platelet Count 163 K/mm3 (150-400); RDW Coefficient Variation 17.5 % (11.7-14.2); RDW Standard Deviation 65.3 fL (35.1-46.3); Red Blood Cell Count 3.45 M/mm3 (4.30-5.90); White Blood Cell Count 13.35 K/mm3 (4.00-11.30)
[2020-02-23 09:44] LABS: International Normalized Ratio 1.36; Prothrombin Time Results 14.3 Sec (9.7-11.5)
[2020-02-23 09:47] LABS: Creatine Kinase MB Index 1.6 (0.0-4.0); Troponin I 0.019 ng/mL (0.000-0.040)
[2020-02-23 09:48] LABS: Albumin, Blood 2.9 g/dL (3.4-5.0); Albumin/Globulin Ratio 0.9 (0.8-1.8); Bilirubin, Total 1.3 mg/dL (0.1-1.0); Bun/Creatinine Ratio 27.4 (12.0-20.0); Calcium, Blood 12.2 mg/dL (8.5-10.1); Creatinine, Blood 1.9 mg/dL (0.60-1.20); Globulin, Blood 3.3 g/dL (2.2-4.0); Potassium, Blood 5.1 mmol/L (3.5-5.5); Total Protein, Blood 6.2 g/dL (6.4-8.2)
[2020-02-23 11:31] LABS: Source, Urine Catheter
[2020-02-23 11:53] LABS: Bilirubin, Urine Neg (Neg); Blood, Urine Neg (Neg); Glucose Qualitative, Urine Neg (Neg); Ketones, Urine 1+ (Neg); Leukocyte Esterase, Urine Neg (Neg); Nitrite, Urine Neg (Neg); Protein, Urine Neg (Neg); Urobilinogen, Urine 1+ (Normal)
[2020-02-23 11:55] LABS: Appearance, Urine Clear (Clear); Color, Urine Yellow (P-Yellow)
[2020-02-23] MEDS ORDERED: Humalog100 UNIT/1 SC (12:53)
[2020-02-23] MEDS ORDERED: ISOSORBIDE MONO60 MG PO (12:57)
[2020-02-23] MEDS ORDERED: OMEP20ER PO (12:59)
[2020-02-23] MEDS ORDERED: ALLO100 PO (12:59)
[2020-02-23] MEDS ORDERED: OXYC10TA19 PO (12:59)
[2020-02-23] MEDS ORDERED: TAMS.4ER PO (12:59)
[2020-02-23] MEDS ORDERED: TORSE20 PO (13:00)
[2020-02-23] MEDS ORDERED: Mupirocin22 GM TOP (13:01)
[2020-02-23] MEDS ORDERED: WARF5 PO (13:01)
[2020-02-23 13:03] LABS: Automated BF WBC Count 0.278 K/mm3 (0-999); Body Fluid WBC Count 278 /mm3 (0-999)
[2020-02-23] MEDS ORDERED: ATOR80 PO (13:03)
[2020-02-23] MEDS ORDERED: LISI5 PO (13:03)
[2020-02-23] MEDS ORDERED: SPIRONOLACTONE25 MG PO (13:03)
[2020-02-23] MEDS ORDERED: Aspir 8181 MG PO (13:04)
[2020-02-23] MEDS ORDERED: CARV6.25 PO (13:05)
[2020-02-23] MEDS ORDERED: INSULANPEN SC (13:08)
[2020-02-23 13:30] LABS: RBC Count, Body Fluid 52 /mm3 (0-0)
[2020-02-23 13:40] LABS: Color, Body Fluid Yellow (None-Yellow); Total Cell Count, Body Fluid 100
[2020-02-23 13:42] LABS: Appearance, Body Fluid Clear (Clear)
--- NOTE | 2020-02-23 17:07 | NUR ---
PT AOX3 AND COOPERATIVE OF CARE. PT TRIES TO HELP TURN, BUT WILL CRY OUT IF HIS LEGS ARE GRABBED. NO SKIN ISSUES NOTED AND BP LOOKS MUCH IMPROVED. WILL CONTINUE TO MONITOR. CALL LIGHT IS WITHIN REACH.
[2020-02-23] MEDS ORDERED: ATHLETE'S FOO35.4 GM TOP (19:00)
--- NOTE | 2020-02-24 04:22 | NUR ---
CLEANING LABORER SUMMARY PT A/O X2. PT HAS CHRONIC BACK PAIN. REPOSITIONG PROVIDED THROUGHOUT THE NIGHT. HEATING PAD APPLIED TO BACK. PT ALSO MEDICATED FOR BACK PAIN. HYPOTENSIVE LIKE PREVIOUS SHIFTS. OTHERWISE, VSS. DENIES DIZZINIESS, NAUSEA. NO ACUTE CHANGES.
[2020-02-24 05:52] LABS: Hematocrit 35.2 % (37.0-53.0); Hemoglobin 10.6 g/dL (13.5-17.5); Mean Corpuscular HGB 30.8 pg (26.0-34.0); Mean Corpuscular HGB Conc 30.1 g/dL (31.5-36.5); Mean Corpuscular Volume 102 fL (80-100); Mean Platelet Volume 11.5 fL (9.1-12.4); Platelet Count 141 K/mm3 (150-400); RDW Coefficient Variation 17.6 % (11.7-14.2); RDW Standard Deviation 65.5 fL (35.1-46.3); Red Blood Cell Count 3.44 M/mm3 (4.30-5.90); White Blood Cell Count 12.76 K/mm3 (4.00-11.30)
[2020-02-24 05:58] LABS: International Normalized Ratio 1.42; Prothrombin Time Results 14.9 Sec (9.7-11.5)
[2020-02-24 05:59] LABS: Albumin, Blood 2.7 g/dL (3.4-5.0); Anion Gap 9 mmol/L (6-16); Blood Urea Nitrogen 44 mg/dL (8-24); Bun/Creatinine Ratio 30.3 (12.0-20.0); CO2, Blood 18 mmol/L (21-32); Calcium, Blood 12.1 mg/dL (8.5-10.1); Chloride, Blood 112 mmol/L (98-108); Creatinine, Blood 1.45 mg/dL (0.60-1.20); Glomerular Filtration Rate 50 (60-); Glucose, Blood 95 mg/dL (70-99); Phosphorus, Blood 2.6 mg/dL (2.5-4.9); Potassium, Blood 4.8 mmol/L (3.5-5.5); Sodium, Blood 139 mmol/L (136-145)
[2020-02-24] MEDS ORDERED: Coumadin2 MG PO (14:20)
[2020-02-24] MEDS ORDERED: CIPRO500 M1 PO (14:23)
--- NOTE | 2020-02-24 17:06 | NUR ---
PT IS AOX2-3 WITH CONFUSION. PT HAS BEEN IN BED MOST OF THE DAY, BUT HAS BEEN UP FOR MEALS. PT COMPLAINS ALOT WHILE USING WALKER AND BEING HELPED TO CHAIR, BUT IS ABLE TO DO THIS. PT DOES HAVE CONFUSION AND WILL NOT KNOW WHY HE IS IN THE CHAIR OR THINK HE NEEDS TO GET UP FOR NO REAL REASON. BED AND CHAIR ALARM ARE IN PLACE. PT HAS TAKEN A LONG NAP THIS AFTERNOON WILL CONTINUE TO MONITOR. BACK PAIN WAS TREATED PER EMAR.
[2020-02-25 05:11] LABS: Hematocrit 34.5 % (37.0-53.0); Hemoglobin 10.5 g/dL (13.5-17.5); Mean Corpuscular HGB Conc 30.4 g/dL (31.5-36.5); Mean Corpuscular Volume 102 fL (80-100); Platelet Count 150 K/mm3 (150-400); RDW Standard Deviation 66.7 fL (35.1-46.3); Red Blood Cell Count 3.39 M/mm3 (4.30-5.90); White Blood Cell Count 12.69 K/mm3 (4.00-11.30)
--- NOTE | 2020-02-25 05:13 | NUR ---
SHIFT SUMMARY- PT. ALERT W/INTERMITTENT CONFUSION. PT. HAD NO ACUTE EVENTS OVERNIGHT. HAD LARGE BM. NO C/O PAIN OR DISCOMFORT THIS SHIFT. HIDALGO CATHETER PATENT AND DRAINING. PT. ASLEEP T/O MOST OF THE NIGHT. NO APPARENT DISTRESS NOTED. VSS, BP IMPROVING. CALL LIGHT WITHIN REACH, SIDE RAILS UP X2, AND BED ALARM ON FOR SAFETY. WILL CONT TO MONITOR.
[2020-02-25 05:28] LABS: International Normalized Ratio 1.65; Prothrombin Time Results 17.2 Sec (9.7-11.5)
[2020-02-25 05:31] LABS: Alanine Aminotransfer (ALT/SGP 98 U/L (12-78); Albumin, Blood 2.8 g/dL (3.4-5.0); Albumin/Globulin Ratio 0.8 (0.8-1.8); Alk Phos 201 U/L (50-136); Anion Gap 9 mmol/L (6-16); Aspartate Aminotrans (AST/SGOT 182 U/L (12-37); Blood Urea Nitrogen 41 mg/dL (8-24); Bun/Creatinine Ratio 34.5 (12.0-20.0); CO2, Blood 20 mmol/L (21-32); Calcium, Blood 12.5 mg/dL (8.5-10.1); Chloride, Blood 112 mmol/L (98-108); Creatinine, Blood 1.19 mg/dL (0.60-1.20); Globulin, Blood 3.4 g/dL (2.2-4.0); Glomerular Filtration Rate >60 (60-); Glucose, Blood 82 mg/dL (70-99); Potassium, Blood 4.8 mmol/L (3.5-5.5); Sodium, Blood 141 mmol/L (136-145); Total Protein, Blood 6.2 g/dL (6.4-8.2)
--- NOTE | 2020-02-25 10:13 | NUR ---
I'm in the role of CNA2 student today.
--- NOTE | 2020-02-25 18:16 | NUR ---
NO ACUTE CHANGES NOTED, PATIENT HAS COMPLAINTS OF BACK PAIN THAT IS RELEIVED WITH PRN MEDICATION. PATIENT HAD MULTIPLE BOWEL MOVEMENTS EARLIER IN THE DAY BUT HAVE SLOWED DOWN THIS AFTERNOON. NO OTHER ISSUES NOTED AT THIS TIME. WILL CONTINUE TO MONITOR FOR CHANGES.
[2020-02-26 05:47] LABS: International Normalized Ratio 1.92; Prothrombin Time Results 19.8 Sec (9.7-11.5)
--- NOTE | 2020-02-26 05:58 | NUR ---
SHIFT SUMMARY- PT. RESTLESS T/O THE NIGHT. ALERT W/INTERMITTENT CONFUSION, ATTEMPTED TO GET OOB MULTIPLE TIMES THIS SHIFT. PT. ASSISTED BACK TO BED MANY TIMES AND REPOSITIONED FOR COMFORT. C/O BACK AND HIP PAIN. MEDICATED PER EMAR WITH MINIMAL RELIEF. PT. HAD SEVERAL LOOSE STOOLS DURING THE NIGHT. NIGHT TIME LACTULOSE HELD PER ORDER. PT. PRESENTLY SLEEPING COMFORTABLY IN BED, NO APPARENT DISTRESS NOTED. CALL LIGHT WITHIN REACH, SIDE RAILS UPX2, AND BED ALARM OF FOR SAFETY. WILL CONT TO MONITOR.
--- NOTE | 2020-02-26 12:21 | NUR ---
ALERT AT BASELINE, medicated for pain, call light in reach, slow to respond, cooperativ
[2020-02-26] MEDS ORDERED: LACT10SY PO (12:22)
--- NOTE | 2020-02-26 14:03 | NUR ---
Left with transport in a wc, a+o, called by rh for report when he had safely arrived at destination, paper work along with hard script sent with transport
== END 2020-02-26 13:12 | DRG 92 ==
LOC: ER 08:38 → MEDS 15:43
PROVIDERS: Emergency Medicine; ADMIT Internal Medicine
DX: G92 Toxic encephalopathy (principal); Z68.41 Body mass index [BMI] 40.0-44.9, adult; I50.22 Chronic systolic (congestive) heart failure; I13.0 Hypertensive heart and chronic kidney disease with heart failure and stage 1 through stage 4 chronic kidney disease, or unspecified chronic kidney disease; N17.9 Acute kidney failure, unspecified; E72.20 Disorder of urea cycle metabolism, unspecified; E11.22 Type 2 diabetes mellitus with diabetic chronic kidney disease; N18.3 Chronic kidney disease, stage 3 (moderate); I25.10 Atherosclerotic heart disease of native coronary artery without angina pectoris; E11.51 Type 2 diabetes mellitus with diabetic peripheral angiopathy without gangrene; Z86.711 Personal history of pulmonary embolism; E66.01 Morbid (severe) obesity due to excess calories; Z95.0 Presence of cardiac pacemaker; I49.5 Sick sinus syndrome; I35.0 Nonrheumatic aortic (valve) stenosis; Z79.82 Long term (current) use of aspirin; Z79.01 Long term (current) use of anticoagulants; K75.81 Nonalcoholic steatohepatitis (NASH); I95.9 Hypotension, unspecified; E86.0 Dehydration; T50.905A Adverse effect of unspecified drugs, medicaments and biological substances, initial encounter; Z79.4 Long term (current) use of insulin
CPT/HCPCS: 36415; 49083; 51702; 70450; 71045; 74176; 80053; 80069; 81003; 82140; 82550; 82553; 82947; 83605; 83880; 84484; 85025; 85027; 85610; 87040; 87070; 87205; 89051; 93005; 93010; 96361-59; 96365-59; 97110; 97112; 97162; 97166; 97530; 97535; 99285-25; A9270-GY; J2543; J7030